=== PATIENT | female | born 1955 | race Caucasian/White ===

== ENCOUNTER → 2017-10-03 | Day surgery (SDC) | payer OTHER ==
[~2017-10-03] MED LIST: BUPIVACAINE/EPINEPHRINE 0.5% PF 30 ML VIAL ONE; CITA20TA4 PO; FLUT50SP EACH NARE; GABA800T PO; KETOROLAC TROMETHAMINE 30 MG/ML (IVP) VIAL IV PUSH ONE; MIDAZOLAM HCL 2 MG/2 ML VIAL ONE; NORC7.5T PO; ONDANSETRON HCL 4 MG/2 ML VIAL IV PUSH ONE; PRAV20 PO; PROPOFOL 200 MG/20 ML AMP IV ONE; Z.0.COMMODE-3:1; ceFAZolin INJ 1,000 MG VIAL ONE
--- NOTE | 2017-10-03 14:14 | PD.OP ---
cc: Min Naranjo MD Operative Report Date of Surgery: Oct 03, 2017 Preoperative Diagnosis: Internal derangement left knee. Osteoarthritis left knee. Probable medial meniscus tear, left knee Postoperative Diagnosis: Complex tear left knee medial meniscus. Osteoarthritis left knee, medial compartment Procedure: Arthroscopy of the left knee Orthoscopic medial meniscectomy. Arthroscopic medial compartment abrasion chondroplasty, minor Anesthesia: Gen. Surgeon: Min Naranjo [employer] Equipment Tender(s): Staff Operation and Findings: EBL: Minimal INDICATION: This patient presents with significant knee pain. Investigative studies show evidence of a torn medial meniscus. There is some evidence of chondral malacia of the medial compartment. She now presents for arthroscopic surgery. PROCEDURE: The patient was brought the operating room and anesthetized in the supine position. The left leg was placed in the arthroscopy alvarez with a tourniquet about the thigh. The leg was scrubbed with alcohol followed by Hibiclens followed by ChloraPrep and draped sterilely. Antibiotics were given within 1 hour time window and a timeout was done. After exsanguination, the tourniquet was inflated to 250 mmHg. The knee was approached. A lateral incision was made and the cannula was introduced. The knee was inflated with normal saline. The camera was placed into the suprapatellar pouch. An arthroscopic evaluation and treatment of the knee was done and sequences involving the retropatellar region, medial and lateral gutters, medial compartment, femoral notch, and lateral compartment. Findings and treatments are described below. On the contralateral side, a 18- gauge spinal needle was introduced and a separate incision was made. Through the separate incision we were able to use a meniscal debrider and straight and angle meniscus Kerrison punches. Once the treatments were completed, all fragments were floated free from the joint. SUPRAPATELLAR POUCH: There were no loose bodies. Mild synovitis. The patella surface was relatively unremarkable RETROPATELLAR SURFACE and FEMORAL TROCHLEA: Normal-appearing right patellar surface and femoral trochlea MEDIAL AND LATERAL GUTTERS: Were free of any loose bodies. MEDIAL COMPARTMENT: Complex tear of the medial meniscus starting from approximately the 8 o'clock position to the posterior horn. There was appeared beak type tear with a portion flipped into the region cephalad to the remaining portion of the meniscus. FEMORAL NOTCH: Normal ACL footprint LATERAL COMPARTMENT: Normal appearing lateral compartment with no evidence of a meniscus tear or significant chondromalacia TREATMENT PERFORMED: Arthroscopic aldo were utilized and straight and angled punches. The medial meniscus was taken from the 7:30 position to the posterior horn. The root attachment was normal. The rim of the meniscus was intact. There was a minor abrasion chondroplasty involving the medial compartment. There was a small area of grade 4 articular cartilage loss seen on the medial tibia at about the 10 o'clock position. There was corresponding grade 2 changes of the femur in the same region. All fragments were floated free from the joint. The wound was irrigated copiously with normal saline solution. The portals were injected with half percent Marcaine with epinephrine. Steri-Strips were applied using benzoin. A sterile dressing was applied. The patient was awakened and taken to the recovery room in satisfactory condition. The sponge count, needle counts and instrument counts were all correct. There was no complication was appreciated. Min Naranjo MD Oct 03, 2017 14:14
== END | disposition home or self-care (01) ==
LOC: ESDC 11:48
PROVIDERS: ATTEND Orthopaedic Surgery Orthopaedic Surgery of the Spine
DX: S83.232A Complex tear of medial meniscus, current injury, left knee, initial encounter (principal); M17.12 Unilateral primary osteoarthritis, left knee
CPT/HCPCS: 01400; 29881; J0690; J1885; J2250; J2405; J3010